=== PATIENT | male | born 1955 | race Caucasian/White ===

== ENCOUNTER 2017-12-03 11:40 | Emergency (ER) | payer OTHER ==
--- OUTSIDE RECORDS SUMMARY | 2017-12-03 11:43 | XMS REPORT | Clinical Summary ---
:1955 Author Organization [facility] Address [address] [place] [address] Care Team Providers Name Role Phone Kody Matt MD Primary Care Provider Allergies No Known Allergies Current Medications Prescription Sig. Disp. Refills Start Date End Date Status verapamil extended Take 120 mg by mouth 2 01/14/2017 Active release (VERELAN) 120 once daily. MG 24 hr capsule valsartan-hydrochloro Take 1 tablet by mouth 1 10/20/2016 Active thiazide (DIOVAN-HCT) once daily. 160-12.5 mg per tablet atorvastatin TK 1 T PO QD 1 11/09/2016 Active (LIPITOR) 40 MG tablet zolpidem (AMBIEN) 10 Take 10 mg by mouth 0 01/09/2017 Active mg tablet nightly. testosterone INJECT 1.25 0 12/26/2016 Active cypionate MILLILITER(S) (DEPOTESTOTERONE INTRAMUSCULARY EVERY CYPIONATE) 200 mg/mL WEEK injection Active Problems Problem Noted Date Palpitations 01/22/2017 Essential hypertension 01/22/2017 Encounters Date Type Specialty Care Team Description 01/22/2017 Lab Lab Momo Hinojosa MD Essential hypertension; Palpitations 01/22/2017 Office Visit Cardiology Momo Hinojosa MD Palpitations ( Primary Dx); Essential hypertension after 12/02/2016 Family History Relation Name Status Comments Father PACEMAKER Social History Tobacco Use Types Packs/Day Years Used Date Never Smoker Alcohol Use Drinks/Week oz/Week Comments Yes Sex Assigned at Date Recorded Not on file Last Filed Vital Signs Vital Sign Reading Time Taken Blood Pressure 148/78 01/22/2017 8:53 AM WELFARE SUPERVISOR Pulse 73 01/22/2017 8:53 AM WELFARE SUPERVISOR Temperature - - Respiratory Rate - - Oxygen Saturation - - Inhaled Oxygen Concentration - - Weight 112 kg (247 lb) 01/22/2017 8:53 AM WELFARE SUPERVISOR Height 182.9 cm (6') 01/22/2017 8:53 AM WELFARE SUPERVISOR Body Mass Index 33.5 01/22/2017 8:53 AM WELFARE SUPERVISOR Plan of Treatment Health Maintenance Due Date Last Done Comments COLON CANCER SCREENING 11/14/2003 SHINGRIX VACCINE (#1) 11/14/2003 ZOSTER VACCINE 2013 INFLUENZA VACCINE 09/11/2017 Procedures Procedure Name Priority Date/Time Associated Comments Diagnosis ECHOCARDIOGRAM 2D Routine 01/22/2017 10:40 Essential Results for this COMPLETE W MMODE AM WELFARE SUPERVISOR hypertension procedure are in SPECTRAL COLOR DOPPLER Palpitations the results (84333) section. THYROID STIMULATING Routine 01/22/2017 9:35 Essential Results for this HORMONE AM WELFARE SUPERVISOR hypertension procedure are in Palpitations the results section. after 12/02/2016 Results Echocardiogram complete w contrast and 3D if needed (01/22/2017 10:40 AM) Narrative Performed At [facility] Echocardiography Report Pat.Name:GATO LOCKE Pat.ID:[id number] .Date: 01/22/2017Refer.MD:MOMO HINOJOSA MD Exam Time: 11:48:00 AM Study Type:Routine Echo Height:72inWeight: 247lb BSA: 2.33 m2 DOBAge:1955,61Y Sex: MALEBP:148/78 HR:73 bpmSonogrphr: Jovita Deras RDCS, RVT Pat. Stat.:OutpatientRoom:[place] Study Status:Final Echo Event ID:[id number] Order ID:[id number] Reason for Study:Hypertension; suspected initial eval, Palpitations, suspected cardiac etiology Procedures:2D Echo, Colorflow Doppler Race:C SUMMARY: LV EF is normal. RV systolic function is normal. FINDINGS: LV: LV size is normal. There is mild concentric LV hypertrophy. LVEF is normal. Overall wall motion is normal. RV: RV size is normal. RV systolic function is normal. LA: LA volume is mild to moderately enlarged. RA: RA size is normal. AO: Aortic root diameter is mildly enlarged. SYLVIA: No pericardial effusion. AV: Aortic valve sclerosis. A trace of aortic regurgitation. MV: No structural MV abnormalities noted. PV: No structural PV abnormalities noted. TV: No structural TV abnormalities noted. A trace of tricuspid regurgitation Lucas: LV relaxation is reduced, appropriate for age. LV filling pressureis normal. MEASUREMENTS: 2D Parasternal Long [place] LVOT 1.7 cmLA Ds3.6 cm LVIDd5 cmIndex2.2 cm/m Ao An1.9 cm LVIDs3.2 cmAo Rtd 4 cm Index1.7 cm/m LV%fs 35.4 % LV Hefy516.9 g(122-174) IVSd 1.5 cmRWT0.4 LVPWd1.1 cm LA Sng Plane LA Area 24.7 cm2(8.8-23.4) LA Vol76.2 ml Index32.7 ml/m LA LngAx 6.5 cm Signed 01/23/2017 08:45 AM Jazzy Cotter M.D. Procedure Note Interface, Radiology Results In - 01/23/2017 8:45 AM WELFARE SUPERVISOR [facility] Echocardiography Report Pat.Name: GATO LOCKE.ID: [id number] .Date: 01/22/2017 Refer.MD: MOMO HINOJOSA MD Exam Time: 11:48:00 AM Study Type:Routine Echo Height: 72in Weight: 247lb BSA: 2.33 m2 Age: 10 1955,61Y Sex: MALE BP: 148/78 HR: 73 bpm Sonogrphr: Jovita Deras RDCS, RVT Pat. Stat.:Outpatient Room: [place] Study Status:Final Echo Event ID:[id number] Order ID: [id number] Reason for Study:Hypertension; suspected initial eval, Palpitations, suspected cardiac etiology Procedures:2D Echo, Colorflow Doppler Race: C SUMMARY: LV EF is normal. RV systolic function is normal. FINDINGS: LV: LV size is normal. There is mild concentric LV hypertrophy. LV EF is normal. Overall wall motion is normal. RV: RV size is normal. RV systolic function is normal. LA: LA volume is mild to moderately enlarged. RA: RA size is normal. AO: Aortic root diameter is mildly enlarged. SYLVIA: No pericardial effusion. AV: Aortic valve sclerosis. A trace of aortic regurgitation. MV: No structural MV abnormalities noted. PV: No structural PV abnormalities noted. TV: No structural TV abnormalities noted. A trace of tricuspid regurgitation Lucas: LV relaxation is reduced, appropriate for age. LV filling pressure is normal. MEASUREMENTS: 2D Parasternal Long [place] LVOT 1.7 cm LA Ds 3.6 cm LVIDd 5 cm Index 2.2 cm/m Ao An 1.9 cm LVIDs 3.2 cm Ao Rtd 4 cm Index 1.7 cm/m LV%fs 35.4 % LV Mass 252.9 g (122-174) IVSd 1.5 cm RWT 0.4 LVPWd 1.1 cm LA Sng Plane LA Area 24.7 cm2 (8.8-23.4) LA Vol 76.2 ml Index 32.7 ml/m LA LngAx 6.5 cm Signed 01/23/2017 08:45 AM Jazzy Cotter M.D. Performing Organization Address City/State/[facility] Phone Number [facility] [address] [place] [address] Thyroid stimulating hormone (01/22/2017 9:35 AM) TSH 1.330 0.450 - 4.500 uIU/mL [facility] Specimen Blood Narrative Performed At Performed at:01 - [facility] [address] [place], [id number] Placement Assistant: Rahul Ignacio MD, Phone:[phone] Performing Organization Address City[facility] Phone Number [facility] after 12/02/2016 Insurance Payer Benefit Plan / Group Subscriber ID Type Phone Address AETNA AETNA PPO OPEN CHOICE xxxxxxxxxx PPO Home: Jocelyn JIMMY BEJARANO y [phone] [address]
[2017-12-03] MEDS ORDERED: ONDANSETRON 4 MG/2 ML VIAL ONE ×2 (11:57→16:10)
[2017-12-03] MEDS ORDERED: NA CHLORIDE 0.9% 2,000 ML ONE (11:57)
[2017-12-03] MEDS ORDERED: FENTANYL CITR 100 MCG/2 ML ONE (11:57)
[2017-12-03 12:20] LABS: Absolute Lymphocytes (CBC) 1.4 K/uL (0.7-4.9); Absolute Monocytes 0.9 K/uL (0.1-1.3); Absolute Neutrophil 12.4 K/uL (1.8-8.0); Basophils % 0.4 % (0-1.3); Eosinophils % 0.5 % (0-4.4); Hematocrit 51.3 % (39.6-49.0); Lymphocytes % 9.8 % (15.3-44.8); MCH 31.2 pg (27.0-35.0); MCV 91.7 fL (80-100); MPV 8.9 fL (7.6-11.3); RBC Red Blood Cell Count 5.59 M/uL (4.33-5.43)
--- NOTE | 2017-12-03 12:32 | RAD REPORT ---
EXAM DESCRIPTION: CT - Abdomen Pelvis W Contrast - 12/03/2017 12:15 pm CLINICAL HISTORY: Intense abdominal pain, abdominal distention, diaphoretic COMPARISON: CT imaging July 2009 TECHNIQUE: Biphasic, helical CT imaging of the abdomen and pelvis was performed following 100 ml non -ionic IV contrast. No oral contrast was given. All CT scans are performed using dose optimization technique as appropriate and may include automated exposure control or mA/KV adjustment according to patient size. FINDINGS: No suspicious findings in the lung bases. The liver, spleen, and pancreas show no suspicious findings. No pancreatic duct dilatation. Gallbladder is well filled but not dilated. Gallbladder morin do not appear thickened or edematous. N o pericholecystic fluid. Extrahepatic biliary tree is dilated to 11 mm with questionable stone or mas s in the head of the pancreas. In the central right and left lobe the intrahepatic ducts are dilated. No pneumobilia. Symmetric renal function is seen with no hydronephrosis or suspicious renal mass. No pyelonephritis o r acute renal parenchymal process. No adrenal gland abnormality. Partially filled urinary bladder sherwin ws no suspicious finding. Prostate gland and seminal vesicles without suspicious finding. No dilated bowel loops or bowel wall thickening. Appendix is normal. No free air, free fluid or infla mmatory stranding. No mass or bulky lymphadenopathy. No suspicious bony findings. IMPRESSION: Intrahepatic and extrahepatic biliary tree dilatation with suspected intraductal mass or duct stone in the head of the pancreas. No mass of the pancreas or duodenum seen. No pancreatic duct dilatation. Gallbladder is well filled b ut not distended. Gallstones can be occult on CT imaging. No acute or GI process seen.
[2017-12-03 12:39] LABS: Albumin 4.2 g/dL (3.4-5.0); Bilirubin Direct 1.3 mg/dL (0-0.2); Potassium 3.6 mmol/L (3.5-5.1); Protein, Total 7.5 g/dL (6.4-8.2)
[2017-12-03] MEDS ORDERED: NA CHLORIDE 0.9% 1,000 ML ONE (13:42)
[2017-12-03] MEDS ORDERED: CIPROFLOXACIN 400mg IV 400 MG/200 ML BAG IV ONE (13:42)
[2017-12-03] MEDS ORDERED: METRONIDAZOLE 500mg IVPB 500 MG/100 ML BAG IV ONE (13:42)
--- NOTE | 2017-12-03 14:03 | EDPHYS ---
Physician Documentation [facility] Name: Kar Arellano Age: 62 yrs Sex: Male : 1955 Arrival Date: 12/03/2017 Time: 11:41 Bed 28 Private MD: Kody Matt ED Physician Tavo Flannery HPI: 12/03 11:49 This 62 yrs old Male presents to ER via Wheelchair with complaints of ps1 Abdominal Pain. 11:58 Onset was this morning. No hx of abdominal pain and no previous surgeries. Drinks 2 a ps1 day. Presented diaphoretic and rigid. No fever. Hx of HTN and HLD. Pain rated as severe. No remitting factors. Worse with movement. . Historical: - Allergies: 11:48 NKA; iw - PMHx: 11:48 Hypertension; Hyperlipidemia; headaches; iw - PSHx: 11:48 wrist; elbow; iw - Immunization history:: Adult Immunizations not up to date. - Social history:: Smoking status: Patient/guardian denies using tobacco, Patient uses alcohol, on a daily basis. couple mixed drinks. - Ebola Screening: : Patient negative for fever greater than or equal to 101.5 degrees Fahrenheit, and additional compatible Ebola Virus Disease symptoms Patient denies exposure to infectious person Patient denies travel to an Ebola-affected area in the 21 days before illness onset No symptoms or risks identified at this time. ROS: 11:58 Constitutional: Negative for fever, chills, and weight loss, Eyes: Negative for injury, ps1 pain, redness, and discharge, Cardiovascular: Negative for chest pain, palpitations, and edema, Respiratory: Negative for shortness of breath, cough, wheezing, and pleuritic chest pain, MS/Extremity: Negative for injury and deformity, Skin: Negative for injury, rash, and discoloration, Neuro: Negative for headache, weakness, numbness, tingling, and seizure. 11:58 Abdomen/GI: Positive for abdominal pain. Exam: 11:58 Head/Face: Normocephalic, atraumatic. Eyes: Pupils equal round and reactive to light, ps1 extra-ocular motions intact. Lids and lashes normal. Conjunctiva and sclera are non-icteric and not injected. Chest/axilla: Normal chest wall appearance and motion. Nontender with no deformity. No lesions are appreciated. Cardiovascular: Regular rate and rhythm. No gallops, murmurs, or rubs. Normal PMI, no JVD. No pulse deficits. Respiratory: Lungs have equal breath sounds bilaterally, clear to auscultation and percussion. No rales, rhonchi or wheezes noted. No increased work of breathing, no retractions or nasal flaring. Back: No spinal tenderness. No costovertebral tenderness. Full range of motion. Skin: Warm, dry with normal turgor. Normal color with no rashes, no lesions, and no evidence of cellulitis. 11:58 Neuro: Awake and alert, GCS 15, oriented to person, place, time, and situation. Cranial nerves II-XII grossly intact. Sensory grossly intact. Psych: Awake, alert, with orientation to person, place and time. Behavior, mood, and affect are within normal limits. 11:58 Constitutional: The patient appears diaphoretic, in obvious distress, moderately distressed. 11:58 Abdomen/GI: Inspection: distension, that is moderate, Palpation: moderate abdominal tenderness, tense. Vital Signs: 11:48 BP 153 / 86; Pulse 78; Resp 18 S; Pulse Ox 100% on R/A; Pain 10/10; iw 12:00 BP 141 / 77; Pulse 72; Resp 22; Temp 97.4; Pulse Ox 97% ; Weight 108.86 kg; Height 6 jl7 ft. 0 in. (182.88 cm); Pain 10/10; 12:38 BP 158 / 74; Pulse 84; Resp 16 S; Pulse Ox 96% on R/A; jl7 15:20 BP 147 / 72; Pulse 88; Resp 18; Pulse Ox 100% on R/A; tl3 12:00 Body Mass Index 32.55 (108.86 kg, 182.88 cm) jl7 MDM: 11:55 Patient medically screened. ps1 12/03 11:55 Order name: CBC with Diff; Complete Time: 12:27 ps1 12/03 11:55 Order name: Creatinine for Radiology; Complete Time: 12:34 ps1 12/03 11:55 Order name: Hepatic Function; Complete Time: 12:40 ps1 12/03 11:55 Order name: Lipase; Complete Time: 12:40 ps1 12/03 11:55 Order name: CMP; Complete Time: 12:40 ps1 12/03 11:55 Order name: Lactate; Complete Time: 12:40 ps1 12/03 11:55 Order name: CT Abd/Pelvis - W/Contrast; Complete Time: 12:34 [facility] 12/03 14:14 Order name: EKG Electrocardiogram [facility] 12/03 11:55 Order name: IV Saline Lock; Complete Time: 12:13 ps1 12/03 11:55 Order name: Labs collected and sent; Complete Time: 12:13 [facility] 12/03 12:39 Order name: NPO; Complete Time: 12:40 ps1 Administered Medications: 12:00 Drug: Zofran 4 mg Route: IVP; Site: right antecubital; jl7 12:30 Follow up: Response: No adverse reaction jl7 12:02 Drug: fentaNYL (PF) 100 mcg Route: IVP; Site: right antecubital; jl7 12:30 Follow up: Response: No adverse reaction; Pain is decreased jl7 12:10 Drug: NS 0.9% (30 ml/kg) 30 ml/kg Route: IV; Rate: bolus; Site: right antecubital; jl7 14:21 Drug: Flagyl 500 mg Volume: 100 ml; Route: IVPB; Rate: 200 ml/hr; Infused Over: 30 aj1 mins; Site: right antecubital; 14:22 Drug: Cipro 400 mg Volume: 200 ml; Route: IVPB; Infused Over: 60 mins; Site: right aj1 antecubital; 14:55 Drug: morphine 4 mg Route: IVP; Site: right antecubital; jl7 Disposition: 12/03/17 14:03 Transfer ordered to [facility]. Diagnosis are abdominal pain, Hepatobiliary dilitation, Pancreatic Mass, Gallstone pancreatitis. - Reason for transfer: Higher level of care. - Accepting physician is Sharyn. - Condition is Fair. - Problem is new. - Symptoms are unchanged. Signatures: Dispatcher [employer] EDMS Patito Rodriguez RN RN aj1 Radha Medel RN RN iw Leal, Jahala, RN RN jl7 Tavo Flannery MD MD ps1 Corrections: (The following items were deleted from the chart) 14:18 14:03 12/03/2017 14:03 Transfer ordered to [facility]. Diagnosis is ps1 abdominal pain; Hepatobiliary dilitation; Pancreatic Mass. Reason for transfer: Higher level of care. Accepting physician is Hospitalist. Condition is Fair. Problem is new. Symptoms are unchanged. ps1 14:18 14:18 12/03/2017 14:03 Transfer ordered to [facility]. Diagnosis is ps1 abdominal pain; Hepatobiliary dilitation; Pancreatic Mass. Reason for transfer: Higher level of care. Accepting physician is Sharyn. Condition is Fair. Problem is new. Symptoms are unchanged. ps1 16:22 14:18 12/03/2017 14:03 Transfer ordered to [facility]. Diagnosis is iw abdominal pain; Hepatobiliary dilitation; Pancreatic Mass; Gallstone pancreatitis. Reason for transfer: Higher level of care. Accepting physician is Sharyn. Condition is Fair. Problem is new. Symptoms are unchanged. ps1
--- NOTE | 2017-12-03 14:03 | ER ---
Nurse's Notes [facility] Name: Kar Arellano Age: 62 yrs Sex: Male : 1955 Arrival Date: 12/03/2017 Time: 11:41 Bed 28 Private MD: Kody Matt Diagnosis: abdominal pain;Hepatobiliary dilitation;Pancreatic Mass;Gallstone pancreatitis Presentation: 12/03 11:47 Presenting complaint: Patient states: upper abd pain started this morning 11/20, denies iw n/v/d, pain is constant. Transition of care: patient was not received from another setting of care. Onset of symptoms was December 03, 2017. Risk Assessment: Do you want to hurt yourself or someone else? Patient reports no desire to harm self or others. Initial Sepsis Screen: Does the patient meet any 2 criteria? No. Patient's initial sepsis screen is negative. Does the patient have a suspected source of infection? No. Patient's initial sepsis screen is negative. Care prior to arrival: None. 11:47 Method Of Arrival: Wheelchair iw 11:47 Acuity: JOVAN 2 iw Historical: - Allergies: 11:48 NKA; iw - PMHx: 11:48 Hypertension; Hyperlipidemia; headaches; iw - PSHx: 11:48 wrist; elbow; iw - Immunization history:: Adult Immunizations not up to date. - Social history:: Smoking status: Patient/guardian denies using tobacco, Patient uses alcohol, on a daily basis. couple mixed drinks. - Ebola Screening: : Patient negative for fever greater than or equal to 101.5 degrees Fahrenheit, and additional compatible Ebola Virus Disease symptoms Patient denies exposure to infectious person Patient denies travel to an Ebola-affected area in the 21 days before illness onset No symptoms or risks identified at this time. Screenin:49 Abuse screen: Denies threats or abuse. Denies injuries from another. Nutritional iw screening: No deficits noted. Tuberculosis screening: No symptoms or risk factors identified. Fall Risk IV access (20 points). Assessment: 11:51 General: Appears uncomfortable, ill, Behavior is cooperative. Pain: Complains of pain iw in epigastric area, right upper quadrant and left upper quadrant Pain currently is 10 out of 10 on a pain scale. Neuro: Level of Consciousness is awake, alert, obeys commands, Oriented to person, place, time, situation, Moves all extremities. Full function. Cardiovascular: Capillary refill < 3 seconds in bilateral fingers Patient's skin is warm and dry. Respiratory: Respiratory effort is even, unlabored, Respiratory pattern is regular, symmetrical. GI: Bowel sounds present X 4 quads. Abd is rigid in right upper quadrant and left upper quadrant Reports upper abdominal pain, Patient currently denies diarrhea, nausea, vomiting. Derm: Skin is intact, is healthy with good turgor. Musculoskeletal: Range of motion: intact in all extremities. 12:30 Reassessment: Patient appears in no apparent distress at this time. Patient and/or jl7 family updated on plan of care and expected duration. Pain level reassessed. Patient is alert, oriented x 3, equal unlabored respirations, skin warm/dry/pink. Patient states feeling better. Patient states symptoms have improved. 14:10 Reassessment: Dr. Flannery at bedside discussing plan of care with pt and family. [facility] 14:50 Reassessment: Pt c/o increased pain, one does of 4 mg [address] administered. Per Dr. herve Flannery pt will have another dose administered just prior to departure. 15:20 Reassessment: Patient and/or family updated on plan of care and expected duration. Pain tl3 level reassessed. Patient is alert, oriented x 3, equal unlabored respirations, skin warm/dry/pink. pt moved to room 28. Vital Signs: 11:48 BP 153 / 86; Pulse 78; Resp 18 S; Pulse Ox 100% on R/A; Pain 10/10; iw 12:00 BP 141 / 77; Pulse 72; Resp 22; Temp 97.4; Pulse Ox 97% ; Weight 108.86 kg; Height 6 jl7 ft. 0 in. (182.88 cm); Pain 10/10; 12:38 BP 158 / 74; Pulse 84; Resp 16 S; Pulse Ox 96% on R/A; jl7 15:20 BP 147 / 72; Pulse 88; Resp 18; Pulse Ox 100% on R/A; tl3 12:00 Body Mass Index 32.55 (108.86 kg, 182.88 cm) 7 ED Course: 11:41 Patient arrived in ED. mr 11:41 Kody Matt MD is Private Physician. mr 11:45 Tavo Flannery MD is Attending Physician. ps1 11:48 Triage completed. iw 11:48 Arm band placed on. iw 11:51 Patient has correct armband on for positive identification. Placed in gown. Cardiac iw monitor on. Pulse ox on. NIBP on. 12:03 EKG done, by driver service technician. reviewed by Tavo Flannery MD. at1 12:06 Rashmi Marina, RN is Primary Nurse. jl7 12:11 CT completed. Patient tolerated procedure well. Patient moved to CT via stretcher. Patient moved back from CT. 12:15 CT Abd/Pelvis - W/Contrast In Process Unspecified. EDMS Administered Medications: 12:00 Drug: Zofran 4 mg Route: IVP; Site: right antecubital; jl7 12:30 Follow up: Response: No adverse reaction jl7 12:02 Drug: fentaNYL (PF) 100 mcg Route: IVP; Site: right antecubital; jl7 12:30 Follow up: Response: No adverse reaction; Pain is decreased jl7 12:10 Drug: NS 0.9% (30 ml/kg) 30 ml/kg Route: IV; Rate: bolus; Site: right antecubital; jl7 14:21 Drug: Flagyl 500 mg Volume: 100 ml; Route: IVPB; Rate: 200 ml/hr; Infused Over: 30 aj1 mins; Site: right antecubital; 14:22 Drug: Cipro 400 mg Volume: 200 ml; Route: IVPB; Infused Over: 60 mins; Site: right aj1 antecubital; 14:55 Drug: morphine 4 mg Route: IVP; Site: right antecubital; jl7 Outcome: 14:03 ER care complete, transfer ordered by . ps1 16:22 Patient left the ED. iw Signatures: Dispatcher [employer] EDMS Patito Rodriguez, RN RN aj1 Cruz, Jaida Abrams Radha Givens, JULITO VILA iw Cheyenne Fuentes, oyster shipper EKG Tat1 Rashmi Marina, JULITO RN jl7 Tavo Flannery MD MD ps1 Lisa Cortes RN RN tl3
[2017-12-03] MEDS ORDERED: MORPHINE 4 MG/ML SYR ONE ×2 (14:54→16:08)
--- NOTE | 2017-12-04 04:42 | EKG ---
Test Date: 2017-12-03 Test Time: 11:57:53 Securities Settlement Processor: DEMI MEASUREMENT RESULTS: Intervals: Rate: 73 VA: 180 QRSD: 94 QT: 358 QTc: 394 Grover: P: 47 VA: 180 QRS: 3 T: 30 INTERPRETIVE STATEMENTS: Normal sinus rhythm Normal ECG Compared to ECG 01/14/2017 12:24:26 Atrial premature complex(es) no longer present Ventricular premature complex(es) no longer present Electronically Signed On 12-04-17 04:41:42 CDT by Owen Gonzales
== END 2017-12-03 16:22 | disposition short-term general hospital (02) ==
LOC: ER 11:40
DX: K85.10 Biliary acute pancreatitis without necrosis or infection (principal); K83.1 Obstruction of bile duct; K86.89 Other specified diseases of pancreas; I10 Essential (primary) hypertension
CPT/HCPCS: 36415; 74177; 80053; 80076; 83605; 83690; 85025; 93005; J0744; J2405; J3010; J7030; Q9967